=== PATIENT | female | born 1985 | race Caucasian/White ===

== ENCOUNTER → 2016-05-15 | Outpatient (REF) | payer BC ==
[2016-05-15 16:46] LABS: BASO % 0.9 % (0.0-1.0); EOS # 0.2 K/mm3 (0.0-0.50); EOS % 4.3 % (0.0-3.0); LARGE UNSTAINED CELL # 0.1 K/mm3 (0.0-0.4); LARGE UNSTAINED CELL % 2.1 % (0.0-4.0); LYMPH # 1.6 K/mm3 (1.5-6.5); LYMPH % 29.9 % (24.0-44.0); MEAN CORPUSCULAR HEMOGLOBIN 30.5 pg (27.0-33.0); MEAN CORPUSCULAR HGB CONC 33.2 g/dl (32.0-36.5); MONO # 0.3 K/mm3 (0.0-0.8); NEUTROPHILS % 56.8 % (36.0-66.0); PLATELET COUNT, AUTOMATED 263 k/mm3 (150-450); RED CELL DISTRIBUTION WIDTH 11.6 % (11.5-14.5); WHITE BLOOD COUNT 5.3 K/mm3 (4.0-10.0)
== END ==
LOC: M LAB REF 16:16
PROVIDERS: ATTEND Physician Assistant
DX: J02.9 Acute pharyngitis, unspecified (principal)

== ENCOUNTER → 2016-05-22 | Outpatient (REF) | payer BC ==
[2016-05-24 19:05] LABS: CONTROL LINE INT CTR LINE PRESENT; HIV SCRN NEGATIVE (NEGATIVE); HIV SCRN1 NEGATIVE (NEGATIVE)
== END ==
LOC: M SFHCCLAY 09:28
PROVIDERS: ATTEND Family Medicine
DX: Z11.59 Encounter for screening for other viral diseases (principal); Z11.4 Encounter for screening for human immunodeficiency virus [HIV]

== ENCOUNTER 2017-06-20 11:13 | Emergency (ER) | payer BC ==
[2017-06-20] MEDS: NS 1,000 ML IV (12:30)
[2017-06-20 12:43] LABS: KETONE, URINE AUTO RFX TRACE mg/dL (NEGATIVE); MUCUS, URINE RFX SMALL (NEGATIVE); RBC, URINE AUTO RFX 3 /HPF (0-3); SPECIFIC GRAVITY UR AUTO RFX 1.014 (1.002-1.035); SQUAM EPITHELIAL CELL UR AURFX 5 /HPF (0-6); WBC, URINE AUTO RFX 3 /HPF (0-3)
[2017-06-20 12:46] LABS: LEUKOCYTE ESTERASE UR AUTO RFX TRACE (NEGATIVE); NITRITE, URINE AUTO RFX POSITIVE (NEGATIVE)
[2017-06-20 12:47] LABS: BASO # 0.1 10^3/uL (0.0-0.2); BASO % 0.7 % (0.0-1.0); EOS # 0.1 10^3/uL (0.0-0.50); EOS % 1.6 % (0.0-3.0); HEMATOCRIT 39.1 % (36.0-47.0); HEMOGLOBIN 13.2 g/dl (12.0-16.0); IMMATURE GRANULOCYTE % 0.3 % (0-3.0); LYMPH # 2.5 10^3/uL (1.5-4.5); LYMPH % 33.6 % (24.0-44.0); MEAN CORPUSCULAR HEMOGLOBIN 30.6 pg (27.0-33.0); MEAN CORPUSCULAR HGB CONC 33.8 g/dl (32.0-36.5); MEAN CORPUSCULAR VOLUME 90.5 fl (80.0-96.0); MONO # 0.7 10^3/uL (0.0-0.8); MONO % 8.9 % (0.0-5.0); NEUTROPHILS % 54.9 % (36.0-66.0); PLATELET COUNT, AUTOMATED 311 10^3/uL (150-450); RED BLOOD COUNT 4.32 10^6/uL (4.00-5.40); RED CELL DISTRIBUTION WIDTH 11.9 % (11.5-14.5); WHITE BLOOD COUNT 7.3 10^3/uL (4.0-10.0)
[2017-06-20 13:26] LABS: ALBUMIN 4.2 GM/DL (3.2-5.2); ALKALINE PHOSPHATASE 118 U/L (45-117); ALT/SGPT 18 U/L (12-78); ANION GAP 8 MEQ/L (8-16); AST/SGOT 17 U/L (7-37); BILIRUBIN,TOTAL 0.6 MG/DL (0.2-1.0); BLOOD UREA NITROGEN 10 MG/DL (7-18); CALCIUM LEVEL 8.7 MG/DL (8.5-10.1); CARBON DIOXIDE LEVEL 25 MEQ/L (21-32); CHLORIDE LEVEL 104 MEQ/L (98-107); CREATININE FOR GFR 0.59 MG/DL (0.55-1.30); GLOMERULAR FILTRATION RATE > 60.0 (>60); GLUCOSE, FASTING 89 MG/DL (70-100); HCG, SERUM QUANTITATIVE 14955 MIU/ML; POTASSIUM SERUM 3.7 MEQ/L (3.5-5.1); SODIUM LEVEL 137 MEQ/L (136-145); TOTAL PROTEIN 7.7 GM/DL (6.4-8.2)
[2017-06-20] MEDS: NITROFURANTOIN (MACROBID) 100 MG CAP PO (14:25)
== END 2017-06-20 14:35 | disposition home or self-care (01) ==
LOC: M ED 11:13
DX: O20.9 Hemorrhage in early pregnancy, unspecified (principal); O23.41 Unspecified infection of urinary tract in pregnancy, first trimester; Z3A.01 Less than 8 weeks gestation of pregnancy
CPT/HCPCS: 76801

== ENCOUNTER → 2017-06-22 | Outpatient (CLI) | payer BC ==
[2017-06-22 13:32] LABS: HCG, SERUM QUANTITATIVE 24569 MIU/ML
== END ==
LOC: M LAB 12:25
DX: O20.0 Threatened abortion (principal)

== ENCOUNTER → 2017-06-28 | Outpatient (REF) | payer BC ==
[2017-06-28 12:19] LABS: BASO % 0.5 % (0.0-1.0); EOS # 0.1 10^3/uL (0.0-0.50); EOS % 1.6 % (0.0-3.0); HEMATOCRIT 35.7 % (36.0-47.0); IMMATURE GRANULOCYTE % 0.5 % (0-3.0); LYMPH # 2.5 10^3/uL (1.5-4.5); LYMPH % 28.9 % (24.0-44.0); MEAN CORPUSCULAR HEMOGLOBIN 30.5 pg (27.0-33.0); MEAN CORPUSCULAR HGB CONC 33.6 g/dl (32.0-36.5); MEAN CORPUSCULAR VOLUME 90.6 fl (80.0-96.0); MONO # 0.7 10^3/uL (0.0-0.8); MONO % 8.2 % (0.0-5.0); NEUTROPHILS # 5.2 10^3/uL (1.8-7.7); NEUTROPHILS % 60.3 % (36.0-66.0); PLATELET COUNT, AUTOMATED 279 10^3/uL (150-450); RED BLOOD COUNT 3.94 10^6/uL (4.00-5.40); RED CELL DISTRIBUTION WIDTH 11.6 % (11.5-14.5); WHITE BLOOD COUNT 8.6 10^3/uL (4.0-10.0)
[2017-06-28 12:26] LABS: ALBUMIN 3.8 GM/DL (3.2-5.2); ALBUMIN/GLOBULIN RATIO 1.19 (1.00-1.93); ALKALINE PHOSPHATASE 98 U/L (45-117); ALT/SGPT 16 U/L (12-78); ANION GAP 9 MEQ/L (8-16); AST/SGOT 14 U/L (7-37); BILIRUBIN,TOTAL 0.3 MG/DL (0.2-1.0); BLOOD UREA NITROGEN 12 MG/DL (7-18); CALCIUM LEVEL 8.5 MG/DL (8.5-10.1); CARBON DIOXIDE LEVEL 23 MEQ/L (21-32); CHLORIDE LEVEL 106 MEQ/L (98-107); CHOLESTEROL LEVEL 228 MG/DL (<200); CHOLESTEROL RISK RATIO 4.653 (<5); GLOMERULAR FILTRATION RATE > 60.0 (>60); GLUCOSE, FASTING 76 MG/DL (70-100); HDL CHOLESTEROL 49 MG/DL (>40); LDL CHOLESTEROL 164.8 MG/DL (<100); NON-HDL-C 179 MG/DL; POTASSIUM SERUM 3.9 MEQ/L (3.5-5.1); SODIUM LEVEL 138 MEQ/L (136-145); TRIGLYCERIDES LEVEL 71 MG/DL (<150)
[2017-06-28 12:54] LABS: HCG, SERUM QUANTITATIVE 66228 MIU/ML
== END ==
LOC: M SFHCCLAY 09:14
DX: Z00.00 Encounter for general adult medical examination without abnormal findings (principal); O20.0 Threatened abortion

== ENCOUNTER → 2017-07-20 | Outpatient (CLI) | payer BC ==
[2017-07-20 18:02] LABS: BASO % 0.5 % (0.0-1.0); EOS # 0.1 10^3/uL (0.0-0.50); EOS % 1.5 % (0.0-3.0); HEMATOCRIT 33.7 % (36.0-47.0); HEMOGLOBIN 11.1 g/dl (12.0-16.0); IMMATURE GRANULOCYTE % 0.6 % (0-3.0); LYMPH # 1.9 10^3/uL (1.5-4.5); LYMPH % 23.5 % (24.0-44.0); MEAN CORPUSCULAR HEMOGLOBIN 30.2 pg (27.0-33.0); MEAN CORPUSCULAR HGB CONC 32.9 g/dl (32.0-36.5); MEAN CORPUSCULAR VOLUME 91.6 fl (80.0-96.0); MONO # 0.7 10^3/uL (0.0-0.8); MONO % 8.2 % (0.0-5.0); NEUTROPHILS # 5.4 10^3/uL (1.8-7.7); NEUTROPHILS % 65.7 % (36.0-66.0); PLATELET COUNT, AUTOMATED 299 10^3/uL (150-450); RED BLOOD COUNT 3.68 10^6/uL (4.00-5.40); RED CELL DISTRIBUTION WIDTH 12.1 % (11.5-14.5); WHITE BLOOD COUNT 8.3 10^3/uL (4.0-10.0)
[2017-07-20 22:02] LABS: CHLAMYDIA DNA AMPLIFICATION NEGATIVE (NEGATIVE); GC DNA AMPLIFICATION NEGATIVE (NEGATIVE)
[2017-07-21 09:17] LABS: RUBELLA IgG QUALITATIVE IMMUNE (IMMUNE)
[2017-07-21 09:31] LABS: HBsAg Prenatal NEGATIVE (NEGATIVE)
[2017-07-21 09:45] LABS: HEPATITIS C VIRUS ABY INDEX 0.1 INDEX (<0.8)
[2017-07-21 09:46] LABS: HIV 1&2 SCREEN CENTAUR NEGATIVE (NEGATIVE)
== END ==
LOC: M SMT 15:45
DX: Z3A.09 9 weeks gestation of pregnancy (principal); Z34.81 Encounter for supervision of other normal pregnancy, first trimester

== ENCOUNTER → 2017-09-27 | Outpatient (CLI) | payer BC | LOC: M SMT 08:32 | DX: Z34.82 Encounter for supervision of other normal pregnancy, second trimester (principal); Z3A.19 19 weeks gestation of pregnancy | CPT/HCPCS: 76811 ==

== ENCOUNTER → 2017-11-12 | Outpatient (CLI) | payer BC ==
[2017-11-12 19:58] LABS: GLUCOSE CHALLENGE TEST 1 HOUR 124 MG/DL (LESS THAN 140)
[2017-11-12 20:05] LABS: HEMATOCRIT 35.9 % (36.0-47.0); HEMOGLOBIN 11.6 g/dl (12.0-15.5); MEAN CORPUSCULAR HEMOGLOBIN 31.6 pg (27.0-33.0); MEAN CORPUSCULAR HGB CONC 32.3 g/dl (32.0-36.5); MEAN CORPUSCULAR VOLUME 97.8 fl (80.0-96.0); PLATELET COUNT, AUTOMATED 309 10^3/uL (150-450); RED BLOOD COUNT 3.67 10^6/uL (4.00-5.40); RED CELL DISTRIBUTION WIDTH 12.9 % (11.5-14.5); WHITE BLOOD COUNT 8.3 10^3/uL (4.0-10.0)
== END ==
LOC: M SMT 10:02
DX: Z36.89 Encounter for other specified antenatal screening (principal)
CPT/HCPCS: 82950

== ENCOUNTER → 2018-01-28 | Outpatient (REF) | payer BC | LOC: M LAB REF 13:31 | DX: Z34.83 Encounter for supervision of other normal pregnancy, third trimester (principal) | CPT/HCPCS: 87081 ==

== ENCOUNTER 2018-02-23 03:44 | Inpatient (IN) | payer BC ==
[2018-02-23 08:09] LABS: HEMATOCRIT 36.7 % (36.0-47.0); HEMOGLOBIN 12.6 g/dl (12.0-15.5); MEAN CORPUSCULAR HEMOGLOBIN 31.3 pg (27.0-33.0); MEAN CORPUSCULAR HGB CONC 34.3 g/dl (32.0-36.5); MEAN CORPUSCULAR VOLUME 91.1 fl (80.0-96.0); PLATELET COUNT, AUTOMATED 298 10^3/uL (150-450); RED BLOOD COUNT 4.03 10^6/uL (4.00-5.40); RED CELL DISTRIBUTION WIDTH 13.8 % (11.5-14.5); WHITE BLOOD COUNT 10.7 10^3/uL (4.0-10.0)
[2018-02-23] MEDS ORDERED: FENTANYL 2MCG/ML ROPIVACAINE 0.2% IN 0.9% NACL 200ML IVBAG As Ordered (08:21)
[2018-02-23] MEDS ORDERED: OXYTOCIN 30 UNITS IN 0.9% NaCl 500ML IV BAG (J2590) As Ordered (08:45)
[2018-02-23] MEDS ORDERED: LACTATED RINGER'S 1000 ML IV (09:30)
[2018-02-23] MEDS ORDERED: ONDANSETRON 4MG/2ML VIAL (J2405) IV ×2 (09:30→13:45)
[2018-02-23] MEDS ORDERED: NALOXONE INJ 0.4 MG/1 ML VIAL (J2310) IV (09:30)
[2018-02-23] MEDS ORDERED: diphenhydrAMINE INJ 50MG/ML VIAL (J1200) IV (09:30)
[2018-02-23] MEDS ORDERED: EPIDURAL COMMENT XX (09:30)
[2018-02-23] MEDS ORDERED: EPIDURAL/PCA KEYS XX (09:30)
[2018-02-23] MEDS ORDERED: REFRIGERATOR IV KEYS XX (09:30)
[2018-02-23] MEDS: ePHEDrine SULFATE 25 MG/5 ML(5MG/ML) SYRINGE IV (09:57)
[2018-02-23] MEDS: FENTANYL/ROPIVACAINE/NACL BAG 200 ML EPIDURAL (10:34)
[2018-02-23] MEDS ORDERED: PROMETHAZINE 25 MG TAB PO (13:45)
[2018-02-23] MEDS ORDERED: RHOGAM 300 MCG (1500 IU) INJ (J2790) IM (13:45)
[2018-02-23] MEDS ORDERED: MEASLES,MUMPS,RUBELLA VACCINE INJ (MMR-II) (90707) SC (13:45)
[2018-02-23] MEDS ORDERED: DIBUCAINE 1% OINTMENT 30GM TOP (13:45)
[2018-02-23] MEDS: LR 1,000 ML IV (14:00)
[2018-02-23] MEDS: OXYTOCIN DRIP 30 UNITS in APPROPRIATE DILUENT 1 EA IV (14:01)
[2018-02-23] MEDS: IBUPROFEN 800 MG TAB PO (16:41)
[2018-02-23] MEDS: DOCUSATE SODIUM 100 MG CAP PO (19:48)
[2018-02-24] MEDS: IBUPROFEN 800 MG TAB PO ×2 (04:56→13:09)
[2018-02-24] MEDS: ACETAMINOPHEN 500 MG TAB PO ×2 (08:59→20:00)
[2018-02-24] MEDS: PRENATAL VITAMINS CHEWABLE TABLET PO (09:00)
[2018-02-24] MEDS: DOCUSATE SODIUM 100 MG CAP PO (16:50)
[2018-02-25] MEDS: PRENATAL VITAMINS CHEWABLE TABLET PO (08:22)
[2018-02-25] MEDS: ACETAMINOPHEN 500 MG TAB PO (08:23)
[2018-02-25] MEDS: DOCUSATE SODIUM 100 MG CAP PO (09:32)
== END 2018-02-25 12:55 | disposition home or self-care (01) | DRG 560 ==
LOC: M LDO 03:44 → M LDI 07:06 → M OBS 15:23
PROVIDERS: Obstetrics & Gynecology
PROC: 10E0XZZ Delivery of Products of Conception, External Approach (ICD-10-PCS; principal; 2018-02-23)
PROC: 0KQM0ZZ Repair Perineum Muscle, Open Approach (ICD-10-PCS; 2018-02-23)
DX: O48.0 Post-term pregnancy (principal); O70.1 Second degree perineal laceration during delivery; Z37.0 Single live birth; Z3A.40 40 weeks gestation of pregnancy

== ENCOUNTER → 2018-08-05 | Outpatient (REF) | payer BC ==
[~2018-08-05] MED LIST: IBUP-1114 PO; MACR100C43 PO; MAPA500T2 PO; PRENTAB9 PO; REGL10TA6 PO
== END ==
LOC: M SFHCCLAY 14:33
PROVIDERS: ATTEND Family Medicine
DX: Z53.9 Procedure and treatment not carried out, unspecified reason (principal); Z00.00 Encounter for general adult medical examination without abnormal findings; E78.00 Pure hypercholesterolemia, unspecified

== ENCOUNTER → 2018-08-09 | Outpatient (REF) | payer BC ==
[2018-08-09 12:26] LABS: HEMATOCRIT 39.4 % (36.0-47.0); HEMOGLOBIN 12.8 g/dl (12.0-15.5); MEAN CORPUSCULAR HEMOGLOBIN 29.3 pg (27.0-33.0); MEAN CORPUSCULAR HGB CONC 32.5 g/dl (32.0-36.5); MEAN CORPUSCULAR VOLUME 90.2 fl (80.0-96.0); PLATELET COUNT, AUTOMATED 371 10^3/uL (150-450); RED BLOOD COUNT 4.37 10^6/uL (4.00-5.40); WHITE BLOOD COUNT 6.9 10^3/uL (4.0-10.0)
[2018-08-09 12:31] LABS: ALBUMIN 3.6 GM/DL (3.2-5.2); ALT/SGPT 18 U/L (12-78); BILIRUBIN,TOTAL 0.4 MG/DL (0.2-1.0); BLOOD UREA NITROGEN 17 MG/DL (7-18); CALCIUM LEVEL 8.9 MG/DL (8.5-10.1); CARBON DIOXIDE LEVEL 26 MEQ/L (21-32); CHLORIDE LEVEL 106 MEQ/L (98-107); CREATININE FOR GFR 0.76 MG/DL (0.55-1.30); GLOMERULAR FILTRATION RATE > 60.0 (>60); GLUCOSE, FASTING 83 MG/DL (70-100); POTASSIUM SERUM 4.1 MEQ/L (3.5-5.1); SODIUM LEVEL 138 MEQ/L (136-145); TOTAL PROTEIN 7.2 GM/DL (6.4-8.2)
[2018-08-09 12:32] LABS: CHOLESTEROL RISK RATIO 8.177 (<5)
== END ==
LOC: M SFHCCLAY 08:11
PROVIDERS: ATTEND Family Medicine
DX: Z00.00 Encounter for general adult medical examination without abnormal findings (principal); E78.00 Pure hypercholesterolemia, unspecified

== ENCOUNTER → 2018-09-29 | Outpatient (REF) | payer BC ==
[2018-10-01 15:17] LABS: HPV HYBRID CAPTURE II Negative (Negative)
== END ==
LOC: M LAB REF 17:39
PROVIDERS: ATTEND Obstetrics & Gynecology
DX: R87.615 Unsatisfactory cytologic smear of cervix (principal); Z12.4 Encounter for screening for malignant neoplasm of cervix
CPT/HCPCS: 87624; G0123

== ENCOUNTER → 2018-12-14 | Outpatient (REF) | payer BC | LOC: M SFHCPLAZ 09:53 | PROVIDERS: ATTEND Dermatology | DX: D48.2 Neoplasm of uncertain behavior of peripheral nerves and autonomic nervous system (principal) ==

== ENCOUNTER → 2019-07-11 | Outpatient (REF) | payer BC ==
[2019-07-11 13:59] LABS: HEMATOCRIT 35.6 % (36.0-47.0); HEMOGLOBIN 11.8 g/dl (12.0-15.5); MEAN CORPUSCULAR HEMOGLOBIN 30.1 pg (27.0-33.0); MEAN CORPUSCULAR HGB CONC 33.1 g/dl (32.0-36.5); MEAN CORPUSCULAR VOLUME 90.8 fl (80.0-96.0); PLATELET COUNT, AUTOMATED 319 10^3/uL (150-450); RED BLOOD COUNT 3.92 10^6/uL (4.00-5.40); WHITE BLOOD COUNT 7.4 10^3/uL (4.0-10.0)
[2019-07-11 15:29] LABS: CHLAMYDIA DNA AMPLIFICATION NEGATIVE (NEGATIVE); GC DNA AMPLIFICATION NEGATIVE (NEGATIVE)
[2019-07-12 10:57] LABS: HEPATITIS B SURFACE ANTIGEN NEGATIVE (NEGATIVE); HEPATITIS C VIRUS ABY INDEX < 0.0 INDEX (<0.8); HIV 1&2 SCREEN CENTAUR NEGATIVE (NEGATIVE); RUBELLA IgG QUALITATIVE IMMUNE (IMMUNE)
== END ==
LOC: M PLALAB 11:26
PROVIDERS: ATTEND Advanced Practice Midwife
DX: Z34.91 Encounter for supervision of normal pregnancy, unspecified, first trimester (principal); Z36.89 Encounter for other specified antenatal screening

== ENCOUNTER → 2019-09-06 | Outpatient (REF) | payer BC | LOC: M SFHCWAGY 18:01 | PROVIDERS: ATTEND Advanced Practice Midwife | DX: Z34.82 Encounter for supervision of other normal pregnancy, second trimester (principal) ==

== ENCOUNTER → 2019-10-06 | Outpatient (CLI) | payer BC ==
--- NOTE | 2019-10-06 15:38 | REP ---
REASON: anatomy. PRIORS: None . Multiple ultrasonographic images of the gravid uterus show a single living intrauterine gestation in the transverse head to the maternal right position. Doppler interrogation of the heart shows a heart rate of 144 beats per minute. The placenta is anterior and not low-lying. The subjective amniotic fluid volume is within normal limits. The cervix measures 3.6 cm in length and is closed. Evaluation of the maternal adnexal spaces showed no abnormalities. The anatomical structures are seen as unremarkable are as follows: Thalami, cavum septum pellucidum, cerebellum, cisterna magna, spine, stomach, urinary bladder, cord insertion, three-vessel umbilical cord, and upper lobe. The structures suboptimally visualized are as follows: Kidneys, four-chamber heart and both right and left ventricular outflow tracts. BPD 5.4 cm = 19 weeks 3 days HC 16.9 cm = 19 weeks 4 days AC 14.1 cm = 19 weeks 3 days FL 3.1 cm = 19 weeks 4 days Estimated weight is 296 grams, which is at the 53rd percentile for 12-yebh-8-day gestational age. IMPRESSION: Single living intrauterine gestation as described above with an estimated gestational age of 19 weeks 2 days via composite criteria and an estimated date of delivery of 02/28/2020 by today's exam. No anomalies were detected, however, I recommend followup examination to better visualized those structures not well seen today as described above.
== END ==
LOC: M WHC 08:06
PROVIDERS: ATTEND Advanced Practice Midwife
DX: O32.2XX0 Maternal care for transverse and oblique lie, not applicable or unspecified (principal); Z3A.19 19 weeks gestation of pregnancy

== ENCOUNTER → 2019-10-20 | Outpatient (CLI) | payer BC ==
--- NOTE | 2019-10-20 10:39 | REP ---
OB ULTRASOUND: Real-time sonographic evaluation of the gravid uterus performed. There is a single living gestation. The estimated gestational age is 21 weeks 2 days, with EDC 02/28/2020. Today's measurements indicate appropriate growth. Biometry and Growth: BPD 51 mm = 21 weeks 3 days, 51st percentile HC 187 mm = 21 weeks 0 days, 40th percentile AC 172 mm = 22 weeks 1 day, 67th percentile FL 36 mm = 21 weeks 4 days, 55th percentile HC/AC ratio 1.09 within normal range of 1.05 to 1.24. Estimated weight 447 grams 60th percentile. SEEN/GROSSLY UNREMARKABLE Lateral ventricles Yes Posterior fossa Yes Upper lip Yes Four-chamber heart Yes LVOT Yes RVOT Yes Stomach Yes Cord insertion Yes Three vessel cord Yes Kidneys Yes Bladder Yes Spine No Cervical length: Closed and measures 3.5 cm in length. heart rate: 153 beats per minute. position: Breech. Placenta: Anterior and grade 1 with no previa or abruption. Amniotic fluid: Within normal limits.
== END ==
LOC: M WHC 08:04
PROVIDERS: ATTEND Advanced Practice Midwife
DX: Z34.82 Encounter for supervision of other normal pregnancy, second trimester (principal); Z36.2 Encounter for other antenatal screening follow-up; Z3A.21 21 weeks gestation of pregnancy

== ENCOUNTER → 2019-11-27 | Outpatient (REF) | payer BC ==
[~2019-11-27] MED LIST changes: +DOCU100C16 PO; +IBUP80TA PO
[2019-11-27 15:53] LABS: HEMATOCRIT 32.1 % (36.0-47.0); HEMOGLOBIN 10.5 g/dl (12.0-15.5); MEAN CORPUSCULAR HEMOGLOBIN 31.3 pg (27.0-33.0); MEAN CORPUSCULAR HGB CONC 32.7 g/dl (32.0-36.5); MEAN CORPUSCULAR VOLUME 95.5 fl (80.0-96.0); PLATELET COUNT, AUTOMATED 310 10^3/uL (150-450); RED BLOOD COUNT 3.36 10^6/uL (4.00-5.40); WHITE BLOOD COUNT 8.6 10^3/uL (4.0-10.0)
[2019-11-27 16:25] LABS: THYROID STIMULATING HORMONE 1.28 uIU/ML (0.358-3.740)
== END ==
LOC: M PLALAB 12:46
PROVIDERS: ATTEND Advanced Practice Midwife
DX: Z34.82 Encounter for supervision of other normal pregnancy, second trimester (principal)

== ENCOUNTER → 2020-01-26 | Outpatient (REF) | payer BC | LOC: M LAB REF 17:00 | PROVIDERS: ATTEND Advanced Practice Midwife | DX: Z34.83 Encounter for supervision of other normal pregnancy, third trimester (principal); Z36.85 Encounter for antenatal screening for Streptococcus B ==

== ENCOUNTER 2020-02-28 08:02 | Inpatient (IN) | payer BC ==
[2020-02-28] VITALS (7 sets, daily range): BP systolic 109–138; BP diastolic 70–90
[~2020-02-28] VITALS: Ht 165.1 cm; Wt 75.8 kg
[~2020-02-28 08:02] MED LIST changes: -DOCU100C16 PO; -IBUP80TA PO
[2020-02-28 09:31] LABS: HEMATOCRIT 34.9 % (36.0-47.0); HEMOGLOBIN 11.2 g/dl (12.0-15.5); MEAN CORPUSCULAR HEMOGLOBIN 29.2 pg (27.0-33.0); MEAN CORPUSCULAR HGB CONC 32.1 g/dl (32.0-36.5); MEAN CORPUSCULAR VOLUME 91.1 fl (80.0-96.0); PLATELET COUNT, AUTOMATED 271 10^3/uL (150-450); RED BLOOD COUNT 3.83 10^6/uL (4.00-5.40); WHITE BLOOD COUNT 8.1 10^3/uL (4.0-10.0)
[2020-02-28] MEDS: miSOPROStol 50 MCG 1/2 TAB (S0191) PO SCH ×2 (10:07→14:39)
[2020-02-28] MEDS ORDERED: LR 1,000 ML IV SCH (18:07)
[2020-02-28] MEDS ORDERED: OXYTOCIN DRIP 30 UNITS in IV 1 EA IV SCH (18:40)
[2020-02-28] MEDS ORDERED: FENTANYL 2MCG/ML ROPIVACAINE 0.2% IN 0.9% NACL 100ML IVBAG As Ordered ONE (23:13)
[2020-02-29] MEDS ORDERED: NALOXONE INJ 0.4MG/1ML VIAL (J2310 PER 1MG) IV PRN (02:00)
[2020-02-29] MEDS ORDERED: diphenhydrAMINE 50MG/ML VIAL (J1200) IV PRN (02:00)
[2020-02-29] MEDS ORDERED: EPIDURAL/PCA KEYS XX PRN (02:00)
[2020-02-29] MEDS ORDERED: FENTANYL/ROPIVACAINE/NACL BAG 100 ML EPIDURAL SCH (02:00)
[2020-02-29] MEDS ORDERED: ONDANSETRON 4MG/2ML VIAL IV PRN (02:00)
[2020-02-29] MEDS ORDERED: EPIDURAL COMMENT XX SCH (02:00)
[2020-02-29] MEDS ORDERED: REFRIGERATOR IV KEYS XX PRN (02:00)
[2020-02-29] MEDS ORDERED: ePHEDrine SULFATE 25 MG/5 ML(5MG/ML) SYRINGE IV PRN (02:00)
[2020-02-29] MEDS ORDERED: LACTATED RINGER'S 1000 ML IV PRN (02:00)
[2020-02-29] MEDS ORDERED: OXYTOCIN DRIP 30 UNITS in IV 1 EA IV SCH (03:09)
[2020-02-29] MEDS ORDERED: METHYLERGONOVINE MALEATE 0.2 MG TAB PO PRN (03:15)
[2020-02-29] MEDS ORDERED: DIBUCAINE 1% OINTMENT 30GM TOP PRN (03:15)
[2020-02-29] MEDS ORDERED: MEASLES,MUMPS,RUBELLA VACCINE INJ (MMR-II) (90707) SC SCH (03:15)
[2020-02-29] MEDS ORDERED: DOCUSATE SODIUM 100 MG CAP PO PRN (03:15)
[2020-02-29] MEDS ORDERED: RHOGAM 300 MCG (1500 IU) INJ (J2790) IM SCH (03:15)
[2020-02-29] MEDS ORDERED: ACETAMINOPHEN TAB 650MG DOSE (2X325MG) PO PRN (03:15)
[2020-02-29 04:52] VITALS: BP 108/56
[2020-02-29] MEDS: IBUPROFEN 600MG TAB PO PRN ×2 (06:29→12:00)
[2020-02-29] MEDS: PRENATAL VITAMINS CHEWABLE TABLET PO SCH (07:49)
[2020-02-29 08:00] VITALS: BP 105/58
[2020-02-29] MEDS: ACETAMINOPHEN 500 MG TAB PO PRN ×2 (08:04→22:37)
[2020-02-29] MEDS ORDERED: SIMETHICONE 40MG/0.6ML DROPS 30ML PO PRN (14:00)
[2020-02-29 17:36] VITALS: BP 134/88
[2020-02-29] MEDS: IBUPROFEN 800 MG TAB PO PRN (18:55)
[2020-03-01 06:05] VITALS: BP 99/56
[2020-03-01] MEDS: IBUPROFEN 800 MG TAB PO PRN (08:00)
[2020-03-01] MEDS: PRENATAL VITAMINS CHEWABLE TABLET PO SCH (08:00)
--- NOTE | 2020-03-01 08:43 | IPNPDOC ---
Progress Note Date of Service: Mar 01, 2020 Day#: 1 Progress Note PPD 1 SUBJECT: Lucia is a 34yo [id number] s/p uncomplicated after undergoing IOL at term, delivering at 0150 on 02/29/20, doing well day #1. She has been ambulating, voiding spontaneously without issue and tolerating regular diet. Breast feeding without issue. Reports lochia is like a normal period. No f/c/n/v/CP/SOB/lightheadedness/dizziness. OBJECTIVE: VITAL SIGNS: Within normal limits, afebrile. Alert and oriented times three. Abdomen: Fundus firm at U-2. Soft, NTTP. Extremities: no pain with palpation of calves ASSESSMENT: Lucia is a 34yo [id number] s/p uncomplicated after undergoing IOL at term, delivering at 0150 on 02/29/20, doing well day #1. Vitals within normal limits, afebrile, hemodynamically stable with no evidence of infection. PLAN: 1. Discharge to home today. 2. Tylenol and Motrin for pain. 3. Encourage breast feeding and ambulation. 4. 6wk vaginal rest, interested in vasectomy 5. Routine PP visit in 6 weeks in clinic. 6. Discussed return precautions at length. Stacey Cullen MD VS, I&O, 24H, Fishbone Vital Signs/I&O Vital Signs Date Time Temp Pulse Resp B/P (MAP) Pulse Ox O2 Delivery O2 Flow Rate FiO2 03/01/20 06:05 98.2 86 18 99/56 (70) 02/29/20 08:00 96 Room Air I&O- Last 24 Hours up to 6 AM 03/01/20 05:59 Intake Total 720 ml Balance 720 ml Stacey Cullen MD Mar 01, 2020 08:43
[2020-03-01] MEDS ORDERED: IBUP80TA PO (08:46)
[2020-03-01] MEDS ORDERED: DOCU100C16 PO (08:46)
--- NOTE | 2020-03-01 08:48 | DS.PDOC ---
Discharge Summary General Date of Admission Feb 28, 2020 at 08:02 Date of Discharge Mar 01, 2020 Discharge Summary PROCEDURES PERFORMED DURING STAY: spontaneous vaginal delivery ADMITTING DIAGNOSES: 1. IOL at term DISCHARGE DIAGNOSES: 1. IOL at term COMPLICATIONS/CHIEF COMPLAINT: Induction. HISTORY OF PRESENT ILLNESS/HOSPITAL COURSE: Lucia is a 34yo [id number] s/p uncomplicated after undergoing IOL at term, delivering at 0150 on 02/29/20. She had a benign course. At time of discharge, vitals within normal limits, afebrile, hemodynamically stable with no evidence of infection. DISCHARGE MEDICATIONS: Please see below. ALLERGIES: Please see below. PHYSICAL EXAMINATION ON DISCHARGE: VITAL SIGNS: Within normal limits, afebrile. Alert and oriented times three. Abdomen: Fundus firm at U-2. Soft, NTTP. Extremities: no pain with palpation of calves LABORATORY DATA: Please see below. ACTIVITY: As tolerated, vaginal rest and no heavy lifting 6 weeks DIET: regular DISPOSITION: home DISCHARGE PLAN/INSTRUCTIONS: 1. Discharge to home today. 2. Tylenol and Motrin for pain. 3. Encourage breast feeding and ambulation. 4. 6wk vaginal rest, interested in vasectomy 5. Routine PP visit in 6 weeks in clinic. 6. Discussed return precautions at length. DISCHARGE CONDITION: Stable TIME SPENT ON DISCHARGE: Greater than 20 minutes. Stacey Cullen MD Vital Signs/I&Os Vital Signs Date Time Temp Pulse Resp B/P (MAP) Pulse Ox O2 Delivery O2 Flow Rate FiO2 03/01/20 06:05 98.2 86 18 99/56 (70) 02/29/20 08:00 96 Room Air I&O- Last 24 Hours up to 6 AM 03/01/20 05:59 Intake Total 720 ml Balance 720 ml Discharge Medications Scheduled No.137/Iron/Folic Acd ( Vitamin Tablet) 1 Tab Tab, 1 TAB PO DAILY, (Reported) Scheduled PRN Acetaminophen (Mapap) 500 Mg Tab, 1,000 MG PO Q6HP PRN for PAIN SCALE 1-5, (Reported) Docusate Sodium (Docusate Sodium) 100 Mg Capsule, 100 MG PO QHSP PRN for CONSTIPATION Ibuprofen (Ibuprofen) 800 Mg Tablet, 800 MG PO Q8HP PRN for PAIN LEVEL 6-10 Allergies Coded Allergies: No Known Drug Allergies (Verified Allergy, Unknown, 02/28/20) Stacey Cullen MD Mar 01, 2020 08:48
== END 2020-03-01 14:00 | disposition home or self-care (01) | DRG 560 ==
LOC: M LDI 08:02 → M OBS 02-29 04:41
PROVIDERS: ADMIT Advanced Practice Midwife; ATTEND Advanced Practice Midwife
PROC: 10907ZC Drainage of Amniotic Fluid, Therapeutic from Products of Conception, Via Natural or Artificial Opening (ICD-10-PCS; 2020-02-28)
PROC: 3E0P7GC Introduction of Other Therapeutic Substance into Female Reproductive, Via Natural or Artificial Opening (ICD-10-PCS; 2020-02-28)
PROC: 10E0XZZ Delivery of Products of Conception, External Approach (ICD-10-PCS; principal; 2020-02-29)
PROC: 0HQ9XZZ Repair Perineum Skin, External Approach (ICD-10-PCS; 2020-02-29)
DX: O48.0 Post-term pregnancy (principal); Z3A.40 40 weeks gestation of pregnancy; O69.81X0 Labor and delivery complicated by cord around neck, without compression, not applicable or unspecified; O70.0 First degree perineal laceration during delivery; Z37.0 Single live birth

== ENCOUNTER → 2020-05-18 | Outpatient (CLI) | payer BC ==
[~2020-05-18] MED LIST changes: +DOCU100C16 PO; +IBUP80TA PO
[2020-05-18 12:53] LABS: ALBUMIN 4.1 GM/DL (3.2-5.2); ALT/SGPT 42 U/L (12-78); BILIRUBIN,TOTAL 0.5 MG/DL (0.2-1.0); BLOOD UREA NITROGEN 17 MG/DL (7-18); CALCIUM LEVEL 9.1 MG/DL (8.5-10.1); CARBON DIOXIDE LEVEL 27 MEQ/L (21-32); CHLORIDE LEVEL 109 MEQ/L (98-107); CHOLESTEROL LEVEL 331 MG/DL (<200); CHOLESTEROL RISK RATIO 6.018 (<5); CREATININE FOR GFR 0.67 MG/DL (0.55-1.30); GLOMERULAR FILTRATION RATE > 60.0 (>60); GLUCOSE, FASTING 77 MG/DL (70-100); HDL CHOLESTEROL 55 MG/DL (>40); LDL CHOLESTEROL 266 MG/DL (<100); NON-HDL-C 276 MG/DL; POTASSIUM SERUM 4.2 MEQ/L (3.5-5.1); SODIUM LEVEL 142 MEQ/L (136-145); TOTAL PROTEIN 7.4 GM/DL (6.4-8.2); TRIGLYCERIDES LEVEL 49 MG/DL (<150)
== END ==
LOC: M LAB 11:00
PROVIDERS: ATTEND Family Medicine
DX: E78.2 Mixed hyperlipidemia (principal)

== ENCOUNTER → 2021-01-21 | Outpatient (REF) | payer BC ==
[2021-01-21 12:20] LABS: HEMATOCRIT 37.4 % (36.0-47.0); HEMOGLOBIN 11.8 g/dl (12.0-15.5); MEAN CORPUSCULAR HEMOGLOBIN 29.4 pg (27.0-33.0); MEAN CORPUSCULAR HGB CONC 31.6 g/dl (32.0-36.5); MEAN CORPUSCULAR VOLUME 93.3 fl (80.0-96.0); PLATELET COUNT, AUTOMATED 354 10^3/uL (150-450); RED BLOOD COUNT 4.01 10^6/uL (4.00-5.40); WHITE BLOOD COUNT 4.4 10^3/uL (4.0-10.0)
[2021-01-21 13:04] LABS: ERYTHROCYTE SEDIMENTATION RATE 13 mm/hr (0-20)
[2021-01-22 21:07] LABS: ANA (HEP2) Negative (.)
[2021-01-23 00:07] LABS: CYCLIC CITRULLINATED PEPTIDE 5 units (0-19); Lyme Disease IgG/IgM Antibodie <0.91 ISR (0.00-0.90); Lyme Disease IgM Ab Quantitati <0.80 index (0.00-0.79)
== END ==
LOC: M SFHCCLAY 08:44
PROVIDERS: ATTEND Family Medicine
DX: M94.0 Chondrocostal junction syndrome [Tietze] (principal); K21.9 Gastro-esophageal reflux disease without esophagitis; R06.02 Shortness of breath

== ENCOUNTER → 2021-03-14 | Outpatient (REF) | payer BC | LOC: M SFHCWAGY 17:10 | PROVIDERS: ATTEND Obstetrics & Gynecology | DX: Z12.4 Encounter for screening for malignant neoplasm of cervix (principal) | CPT/HCPCS: 87624; G0123 ==

== ENCOUNTER → 2021-10-20 | Outpatient (REF) | payer BC ==
[2021-10-20 17:24] LABS: BASO # 0.1 10^3/uL (0.0-0.2); BASO % 0.8 % (0.0-1.0); EOS # 0.2 10^3/uL (0.0-0.5); EOS % 2.9 % (0.0-3.0); HEMATOCRIT 39.3 % (36.0-47.0); HEMOGLOBIN 12.9 g/dl (12.0-15.5); LYMPH # 2.1 10^3/uL (1.5-5.0); LYMPH % 31.4 % (24.0-44.0); MEAN CORPUSCULAR HEMOGLOBIN 29.6 pg (27.0-33.0); MEAN CORPUSCULAR HGB CONC 32.8 g/dl (32.0-36.5); MEAN CORPUSCULAR VOLUME 90.1 fl (80.0-96.0); MONO # 0.6 10^3/uL (0.0-0.8); MONO % 8.6 % (2.0-8.0); NEUTROPHILS # 3.7 10^3/uL (1.5-8.5); NEUTROPHILS % 55.8 % (36.0-66.0); PLATELET COUNT, AUTOMATED 386 10^3/uL (150-450); RED BLOOD COUNT 4.36 10^6/uL (4.00-5.40); WHITE BLOOD COUNT 6.5 10^3/uL (4.0-10.0)
[2021-10-20 17:52] LABS: ALBUMIN 3.9 GM/DL (3.2-5.2); ALT/SGPT 14 U/L (12-78); BILIRUBIN,TOTAL 0.4 MG/DL (0.2-1.0); BLOOD UREA NITROGEN 17 MG/DL (7-18); CALCIUM LEVEL 9.5 MG/DL (8.5-10.1); CARBON DIOXIDE LEVEL 26 MEQ/L (21-32); CHLORIDE LEVEL 106 MEQ/L (98-107); CREATININE FOR GFR 0.66 MG/DL (0.55-1.30); GLOMERULAR FILTRATION RATE > 60.0 (>60); GLUCOSE, FASTING 101 MG/DL (70-100); POTASSIUM SERUM 4.1 MEQ/L (3.5-5.1); SODIUM LEVEL 138 MEQ/L (136-145); TOTAL PROTEIN 7.8 GM/DL (6.4-8.2)
== END ==
LOC: M SFHCCLAY 15:19
PROVIDERS: ATTEND Family Medicine
DX: R53.83 Other fatigue (principal)

== ENCOUNTER → 2022-07-21 | Outpatient (REF) | payer BC | LOC: M SFHCWAGY 17:32 | PROVIDERS: ATTEND Obstetrics & Gynecology | DX: Z12.4 Encounter for screening for malignant neoplasm of cervix (principal) | CPT/HCPCS: 87624; G0123 ==

== ENCOUNTER → 2022-11-04 | Outpatient (CLI) | payer BC | LOC: M WHC 08:22 | PROVIDERS: ATTEND Obstetrics & Gynecology | DX: D24.1 Benign neoplasm of right breast (principal) | CPT/HCPCS: 76642; 77066; G0279 ==

== ENCOUNTER → 2022-11-17 | Outpatient (REF) | payer BC ==
[2022-11-17 18:31] LABS: HEMATOCRIT 38.8 % (36.0-47.0); HEMOGLOBIN 12.4 g/dl (12.0-15.5); MEAN CORPUSCULAR HEMOGLOBIN 29.6 pg (27.0-33.0); MEAN CORPUSCULAR VOLUME 92.6 fl (80.0-96.0); PLATELET COUNT, AUTOMATED 343 10^3/uL (150-450); RED BLOOD COUNT 4.19 10^6/uL (4.00-5.40); WHITE BLOOD COUNT 5.8 10^3/uL (4.0-10.0)
[2022-11-17 18:48] LABS: C REACTIVE PROTEIN QUANTITATIV < 0.40 MG/DL (<1.0)
[2022-11-17 18:49] LABS: IRON (FE) 71 UG/DL (50-170); PERCENT SATURATION 19.9 % (13.2-45.0); TOTAL IRON BINDING CAPACITY 357 UG/DL (250-425)
[2022-11-17 18:52] LABS: FREE T4 1.04 NG/DL (0.89-1.76); THYROID STIMULATING HORMONE 2.498 uIU/ML (0.55-4.78)
[2022-11-17 19:13] LABS: ERYTHROCYTE SEDIMENTATION RATE 27 mm/hr (0-20)
== END ==
LOC: M SFHCCLAY 12:24
PROVIDERS: ATTEND Family Medicine
DX: R53.82 Chronic fatigue, unspecified (principal)

== ENCOUNTER → 2024-01-25 | Outpatient (REF) | payer BC ==
[2024-01-25 19:18] LABS: HEMATOCRIT 39.1 % (36.0-47.0); HEMOGLOBIN 12.7 g/dl (12.0-15.5); MEAN CORPUSCULAR HEMOGLOBIN 29.8 pg (27.0-33.0); MEAN CORPUSCULAR HGB CONC 32.5 g/dl (32.0-36.5); MEAN CORPUSCULAR VOLUME 91.8 fl (80.0-96.0); PLATELET COUNT, AUTOMATED 368 10^3/uL (150-450); RED BLOOD COUNT 4.26 10^6/uL (4.00-5.40); WHITE BLOOD COUNT 5.7 10^3/uL (4.0-10.0)
[2024-01-25 19:31] LABS: ERYTHROCYTE SEDIMENTATION RATE 28 mm/hr (0-20)
[2024-01-25 19:42] LABS: THYROID STIMULATING HORMONE 1.813 uIU/ML (0.55-4.78)
[2024-01-25 19:47] LABS: ALBUMIN 4.2 G/DL (3.2-5.2); ALKALINE PHOSPHATASE 123 U/L (46-116); ALT/SGPT 15 U/L (7.0-40); AST/SGOT 10 U/L (<34); BILIRUBIN,TOTAL 0.6 MG/DL (0.3-1.2); BLOOD UREA NITROGEN 16 MG/DL (9-23); CALCIUM LEVEL 9.9 MG/DL (8.5-10.1); CARBON DIOXIDE LEVEL 27 MMOL/L (20-31); CHLORIDE LEVEL 107 MMOL/L (98-107); CPK CREATINE PHOSPHOKINASE 23 U/L (34-145); CREATININE FOR GFR 0.61 MG/DL (0.55-1.30); FREE T4 1.19 NG/DL (0.89-1.76); GLOMERULAR FILTRATION RATE > 60.0 (>60); GLUCOSE, FASTING 81 MG/DL (60-100); POTASSIUM SERUM 4.3 MMOL/L (3.5-5.1); SODIUM LEVEL 135 MMOL/L (136-145); TOTAL PROTEIN 7.7 G/DL (5.7-8.2)
[2024-01-28 00:48] LABS: CYCLIC CITRULLINATED PEPTIDE < 16 UNITS (<20)
== END ==
LOC: M SFHCCLAY 11:18
PROVIDERS: ATTEND Family Medicine
DX: G43.709 Chronic migraine without aura, not intractable, without status migrainosus (principal); G44.52 New daily persistent headache (NDPH); R53.83 Other fatigue; M79.10 Myalgia, unspecified site; J01.90 Acute sinusitis, unspecified; J30.2 Other seasonal allergic rhinitis

== ENCOUNTER → 2024-02-05 | Outpatient (CLI) | payer BC | LOC: M RAD 12:36 | PROVIDERS: ATTEND Family Medicine | DX: G43.709 Chronic migraine without aura, not intractable, without status migrainosus (principal); G44.52 New daily persistent headache (NDPH); R53.83 Other fatigue ==

== ENCOUNTER → 2024-07-07 | Outpatient (REF) | payer BC ==
[2024-07-07 12:41] LABS: ALBUMIN 3.6 G/DL (3.2-5.2); ALKALINE PHOSPHATASE 98 U/L (35-104); ALT/SGPT 12 U/L (7.0-40); AST/SGOT 11 U/L (<34); BILIRUBIN,TOTAL 0.5 MG/DL (0.3-1.2); BLOOD UREA NITROGEN 15 MG/DL (9-23); CALCIUM LEVEL 9.1 MG/DL (8.5-10.1); CARBON DIOXIDE LEVEL 28 MMOL/L (20-31); CHLORIDE LEVEL 105 MMOL/L (98-107); CHOLESTEROL LEVEL 261 MG/DL (<200); CHOLESTEROL RISK RATIO 6.39 (<5); CREATININE FOR GFR 0.62 MG/DL (0.55-1.30); GLOMERULAR FILTRATION RATE > 60.0 (>60); GLUCOSE, FASTING 89 MG/DL (60-100); HDL CHOLESTEROL 40.8 MG/DL (>40); LDL CHOLESTEROL 200.8 MG/DL (<100); NON-HDL-C 220.2 MG/DL; POTASSIUM SERUM 4.3 MMOL/L (3.5-5.1); SODIUM LEVEL 140 MMOL/L (136-145); TOTAL PROTEIN 6.9 G/DL (5.7-8.2); TRIGLYCERIDES LEVEL 97 MG/DL (<150)
[2024-07-07 12:45] LABS: THYROID STIMULATING HORMONE 0.708 uIU/ML (0.55-4.78); TOTAL 25(OH) VITAMIN D 23.5 NG/ML (20.0-100.0)
[2024-07-07 12:55] LABS: HEMOGLOBIN A1c 5.2 % (4.0-6.0)
== END ==
LOC: M SFHCCLAY 08:07
PROVIDERS: ATTEND Physician Assistant
DX: G43.709 Chronic migraine without aura, not intractable, without status migrainosus (principal)